=== PATIENT | female | born 1950 | race Caucasian/White ===

== ENCOUNTER 2019-06-09 01:16 | Day surgery (SDC) | payer MEDICARE, SELFPAY ==
[2019-05-19 13:29] VITALS: BMI 20.1
[2019-06-09] MEDS: LACTATED RINGERS 1,000 ML 150 ML IV CONT (08:38)
[2019-06-09 08:46] VITALS: BP 131/58; PULSE 67; RESP 20; TEMP 36.8; O2SAT 100; BMI 19.9
--- NOTE | 2019-06-09 09:11 | P.CONGI_ITS ---
Assessment and Plan Additional Plan This is a 68-year-old white female patient seen in evaluation at the request Dr. Posadas. Patient has a history of dysphagia. She continues to have some problem with large pills. She notes substernal burning and discomfort. She underwent an endoscopy in January of 2019. At that time severe esophagitis and stricture ring was noted. Patient was advised to start omeprazole. She has been noncompliant and has not yet begun this medication. Instead she takes [id number] supplements. Past medical history is significant for anxiety, nephrolithiasis, fibromyalgia, depression, GE reflux disease, irritable bowel syndrome, hyperlipidemia, rheumatoid arthritis. Spinal stenosis. She has an allergy to sulfa medications. Home medications include clonazepam. Nitrofurantoin. Various supplements. Physical exam reveals her to be alert. Oriented x3. Very thin in appearance. HEENT exam unremarkable. She is anicteric. Lungs are clear to auscultation and percussion. Heart is without murmur or extra sounds. Abdominal exam bowel sounds are present soft nontender with no organomegaly. Digital external rectal exam normal. Impression 1. Noncompliance with medications. 2. Dysphagia. 3. GE reflux disease. 4. Esophageal stricture ring. Plan is to proceed with follow-up EGD. Hopefully for biopsy and dilatation of esophageal stricturing. Would encourage anti-reflux measures and proton pump inhibitor be implemented if at all possible. GI Consult Note Consult date/time: 06/09/19 09:11 HPI: Jenniffer Clark is a 68 year old female [facility] Social History Social History Smoking status: Never smoker Alcohol intake: never Meds Home Medications and Allergies Home Medications Medication Instructions Recorded Confirmed Type clonazepam 0.5 mg PO DAILY 04/30/19 06/09/19 History pilocarpine HCl 5 mg PO DAILY 04/30/19 06/09/19 History quetiapine 25 mg PO DAILY 04/30/19 06/09/19 History nitrofurantoin 100 mg PO Q12H 7 Days #28 cap 05/01/19 05/19/19 Rx monohydrate/macrocrystals 100 mg capsule Gastrex 1 tab-cap PO TID 05/19/19 05/19/19 History tacrolimus 0.1 % topical ointment 1 applic TOPICAL BID #60 gm 02/05/20 Rx Allergies Allergy/AdvReac Type Severity Reaction Status Date / Time diazepam AdvReac Intermediate Hyperactive Verified 06/09/19 08:55 Sulfa (Sulfonamide AdvReac Unknown Nausea Verified 06/09/19 08:55 Antibiotics) PROPOXYPHENE NAPSYLATE Allergy Intermediate Hyperactive Uncoded 06/09/19 08:55 Vital Signs Vital Signs - 24 hr 06/09/19 08:46 Temperature 36.8 C Pulse Rate 67 Respiratory Rate 20 Blood Pressure 131/58 L Pulse Oximetry 100
--- NOTE | 2019-06-09 09:26 | WPDANESEPPF ---
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 Patient Data Age: 68 Gender: F Height: 5 ft 2 in Weight: 49.4 kg Last Vital Signs Temp 98.2 F 06/09/19 08:46 Pulse 67 06/09/19 08:46 Resp 20 06/09/19 08:46 BP 131/58 L 06/09/19 08:46 Pulse Ox 100 06/09/19 08:46 Allergies Allergy/AdvReac Type Severity Reaction Status Date / Time diazepam AdvReac Intermediate Hyperactive Verified 06/09/19 08:55 Sulfa (Sulfonamide AdvReac Unknown Nausea Verified 06/09/19 08:55 Antibiotics) PROPOXYPHENE NAPSYLATE Allergy Intermediate Hyperactive Uncoded 06/09/19 08:55 Home Medications Medication Instructions Recorded Confirmed Type clonazepam 0.5 mg PO DAILY 04/30/19 06/09/19 History pilocarpine HCl 5 mg PO DAILY 04/30/19 06/09/19 History quetiapine 25 mg PO DAILY 04/30/19 06/09/19 History nitrofurantoin 100 mg PO Q12H 7 Days #28 cap 05/01/19 05/19/19 Rx monohydrate/macrocrystals 100 mg capsule Gastrex 1 tab-cap PO TID 05/19/19 05/19/19 History tacrolimus 0.1 % topical ointment 1 applic TOPICAL BID #60 gm 06/07/19 Rx Patient hx anesthesia problems: none Family hx anesthesia problems: none [facility] Social History Social History Smoking status: Never smoker Alcohol intake: never Anes - Eval Final PreProcedure Day of Procedure 06/09/19 09:26 Patient weight: normal Heart: regular rate and rhythm Lungs: clear to auscultation Airway: Mallampati scale class II Neurological: alert and oriented Last oral intake: >/= 8 hours ASA classification: II Emergent: no Anesthetic plan: proceed Anesthesia type and monitoring: general GIVS and standard monitoring Informed Consent: The patient's anesthetic plan and its attendant risks and benefits were discussed with the patient/family/POA. Questions were solicited and answers provided to the satisfaction of the patient/family/POA.
[2019-06-09 11:24] VITALS: BP 152/53; PULSE 65; RESP 18; O2SAT 100
[2019-06-09 11:34] VITALS: BP 139/67; PULSE 66; RESP 20; O2SAT 100
[2019-06-09 11:44] VITALS: BP 133/59; PULSE 61; RESP 19; O2SAT 100
== END 2019-06-09 11:53 | disposition home or self-care (01) ==
PROVIDERS: PCP Family Medicine; Visit Provider Internal Medicine Gastroenterology
PROC: 0DJ08ZZ Inspection of Upper Intestinal Tract, Via Natural or Artificial Opening Endoscopic (ICD-10-PCS; CPT 43235; principal; 2019-06-09 09:30)
DX: Q39.4 Esophageal web (principal); K21.9 Gastro-esophageal reflux disease without esophagitis; E78.5 Hyperlipidemia, unspecified; M06.9 Rheumatoid arthritis, unspecified; M79.7 Fibromyalgia; F41.8 Other specified anxiety disorders
CPT/HCPCS: 43235; 43450; J2704; J7120

== ENCOUNTER 2022-03-18 13:35 | Outpatient (CLI) | payer MEDICARE, SELFPAY ==
--- NOTE | ~2022-03-18 | MR_ITS ---
EXAMINATION: MR pelvis wo/w con DATE: 03/18/2022 14:53 INDICATION: Bartholin's gland cyst. Lichen sclerosus. TECHNIQUE: Magnetic resonance imaging (MRI) of the pelvis was performed without and with 9 mL MultiHa nce intravenous contrast. COMPARISON: CT abdomen and pelvis 04/07/2011 FINDINGS: The uterus is normal in morphology. The endometrial complex measures 4 mm in thickness, which is norm al. The adnexa are normal. There is physiologic fluid in the pelvis. There is a 2.5 cm subcutaneous l ipoma in the left perineum. There is no abnormal cyst. There is a right inguinal hernia containing fa t. IMPRESSION: 1. 2.5 cm subcutaneous lipoma in the left perineum. Reviewed, dictated and finalized at location A. 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
== END 2022-03-18 13:36 | disposition home or self-care (01) ==
PROVIDERS: PCP Family Medicine; Visit Provider Obstetrics & Gynecology Gynecology
DX: N75.0 Cyst of Bartholin's gland (principal); L90.0 Lichen sclerosus et atrophicus
CPT/HCPCS: 72197; A9577

== ENCOUNTER → 2023-01-26 15:43 | Outpatient (CLI) | payer MEDICARE, SELFPAY ==
--- NOTE | ~2023-01-26 | CT_ITS ---
EXAMINATION: CT abdomen pelvis wo con DATE: 01/26/2023 15:59 INDICATION: Left flank pain. History of kidney stones. TECHNIQUE: Computed tomography (CT) of the abdomen and pelvis was performed without intravenous contr ast. The dose-length product was 194.71 mGy-cm. Automated exposure control and iterative reconstructi on technique were employed. COMPARISON: CT dated 04/07/2011. FINDINGS: Bilateral lower lobe atelectasis. Heart size normal. No significant pleural or pericardial effusion. There is a fat-containing right inguinal hernia. Nonobstructive bowel gas pattern. Moderate colonic fecal loading. There is nodular liver surface, suspicious for cirrhosis. The spleen, pancrea s, adrenal glands and kidneys are unremarkable. No renal stones. No significant hydronephrosis. Gallb ladder is present. There are pelvic phleboliths. There is atherosclerosis of the aorta without aneury sm. No lymphadenopathy. No free air or free fluid. No acute osseous abnormality. There is lower lumba r facet hypertrophy. IMPRESSION: 1. No acute abdominal abnormality. Reviewed, dictated and finalized at location L.
== END ==
PROVIDERS: PCP Family Medicine; Visit Provider Family Medicine
DX: R31.9 Hematuria, unspecified (principal); R10.9 Unspecified abdominal pain
CPT/HCPCS: 74176

== ENCOUNTER → 2023-02-12 08:48 | Outpatient (CLI) | payer MEDICARE, SELFPAY ==
--- NOTE | ~2023-02-12 | US_ITS ---
EXAMINATION: US abdomen complete DATE: 02/12/2023 09:14 INDICATION: Unspecified cirrhosis of the liver TECHNIQUE: Multiple grayscale and Doppler ultrasound images of the abdomen were obtained. COMPARISON: CT, 01/26/2023 FINDINGS: The head and body of the pancreas are normal. The pancreatic tail is obscured by bowel gas. There is nodularity of the liver surface, consistent with cirrhosis. No focal liver mass is identifi ed. Normal hepatopetal flow in the main portal vein. The gallbladder is normal with no abnormal wall thickening, pericholecystic fluid or stones. The normal common bile duct measures 3 mm. There was no sonographic Ordonez sign. The visualized portions of the aorta and inferior vena cava are normal. The spleen is normal in appearance and measures 9.1 cm. The right kidney measures 11.2 x 3.8 x 3.4 cm . The left kidney measures 9.0 x 3.4 x 4.5 cm. The kidneys demonstrate normal parenchymal echogenicit y. There is no hydronephrosis. An extrarenal pelvis is noted on the right as seen on the comparison C T. IMPRESSION: 1. Cirrhosis of the liver. Reviewed, dictated and finalized at location B. IMPRESSION: 1. Cirrhosis of the liver.
== END ==
PROVIDERS: PCP Family Medicine; Visit Provider Family Medicine
DX: K74.60 Unspecified cirrhosis of liver (principal)
CPT/HCPCS: 76700

== ENCOUNTER 2024-03-28 12:27 | Outpatient (CLI) | payer MEDICARE, SELFPAY ==
--- NOTE | ~2024-03-28 | XR_ITS ---
EXAMINATION: XR chest 2V DATE: 03/28/2024 12:39 INDICATION: Cough, unspecified. TECHNIQUE: Frontal and lateral views of the chest were obtained. COMPARISON: Chest 2 views 03/30/2011, CT abdomen and pelvis 02/25/2023 FINDINGS: There is mild scarring at the lung apices. No pleural effusion or pneumothorax. The heart s ize is normal. IMPRESSION: 1. Mild scarring at the lung apices. Reviewed, dictated and finalized at location A. 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
== END 2024-03-28 12:28 | disposition home or self-care (01) ==
LOC: GOSHIMG 12:28
PROVIDERS: PCP Family Medicine; Visit Provider Nurse Practitioner Family
DX: R05.9 Cough, unspecified (principal); R91.8 Other nonspecific abnormal finding of lung field
CPT/HCPCS: 71046

== ENCOUNTER 2025-03-27 13:49 | Outpatient (CLI) | payer MEDICARE, SELFPAY ==
--- NOTE | ~2025-03-27 | MM_ITS ---
EXAMINATION: MM screening richelle BI w christopher HISTORY: Screening TECHNIQUE: Craniocaudal and mediolateral oblique 3-D tomosynthesis images were obtained and synthetic 2-D images were generated. CAD analysis was submitted and interpreted. COMPARISON: Comparison to multiple prior studies sequentially, with oldest reviewed study dated 10/14/2015. BREAST PARENCHYMAL COMPOSITION: Not dense: There are scattered areas of fibroglandular density. FINDINGS: The left breast is stable without evidence for malignancy. There is an obscured mass in the upper outer quadrant of the right breast, anterior third. IMPRESSION: 1. Obscured right breast mass upper outer quadrant, anterior third. 2. Additional mammographic views and possible breast ultrasound are recommended. BI-RADS Category 0: Incomplete: Needs additional imaging evaluation. Reviewed, dictated and finalized at location O. GAGE LOAN INTERVIEWER IMPRESSION: 1. Obscured right breast mass upper outer quadrant, anterior third. 2. Additional mammographic views and possible breast ultrasound are recommended . BI-RADS Category 0: Incomplete: Needs additional imaging evaluation.
--- NOTE | ~2025-03-27 | DEXA_ITS ---
Bone Density Report Name: MASON SANZ Age: 74 Sex: Female Ethnicity: White Date of : 1950 Indication: postmenopausal; screening for osteoporosis; parental hip fracture; height loss; Referring Provider: PINA CARRILLO Study: Bone densitometry was performed. Exam Date: March 27, 2025 Accession number: [id number] Bone Density: Region BMD T-score Z-score Classification AP Spine(L1-L4) 1.072 0.2 2.7 Normal Femoral Neck (Left) 0.744 -0.9 1.2 Normal Total Hip (Left) 0.950 0.1 1.9 Normal Femoral Neck (Right) 0.772 -0.7 1.4 Normal Total Hip (Right) 0.958 0.1 1.9 Normal Total Hip Mean 0.954 0.1 1.9 Normal World Health Organization criteria for BMD impression classify patients as: Normal (T-score at or above -1.0), Osteopenia (T-score between -1.0 and -2.5), or Osteoporosis (T-score at or below -2.5). 10-year Fracture Risk: FRAX not reported because: All T-scores for Spine Total, Hip Total, Femoral Neck at or above -1.0 Previous Exams: Region Exam Age BMD T-score BMD Change BMD Change Date g/cm2 vs Baseline vs Previous Total Hip(Left) 03/27/2025 74 0.950 0.1 -0.004 (-0.4%) -0.004 (-0.4%) 08/30/2018 67 0.953 0.1 Total Hip(Right) 03/27/2025 74 0.958 0.1 -0.010 (-1.0%) -0.010 (-1.0%) 08/30/2018 67 0.968 0.2 *Denotes significance at 95% confidence level, LSC for Total Hip = 0.027 g/cm2 Clinical Information Provided by Patient: Parent has had a hip fracture Patient maximum height was 64 No regular weight bearing exercise Onset of menses at age 12 Number of children 1 Impression: The patient has normal bone mass. The patient has risk factors, including: parental hip fracture. No significant bone loss was observed. Discussion: BONE DENSITY IS ABOVE THE MINIMUM DESIRABLE LEVEL AT ALL SKELETAL SITES TESTED. This patient?s bone mineral density is above the minimum desirable level (T-score -1.0 or better) at all sites measured. The patient should follow a healthful lifestyle (good nutrition with adequate calcium and vitamin D, and appropriate weight-bearing exercise). Follow-Up: Consider repeating this study in 5 years or sooner if there is some new clinical indication. Reported by: JEFFERY on 03/27/2025 2:56:00 PM. Reviewed, dictated and finalized at location A.
--- OUTSIDE RECORDS SUMMARY | 2025-03-27 15:46 | XMS_ITS | Clinical Summary ---
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 Gender Identity Not on file Sexual Orientation Not on file Plan of Treatment Health Maintenance Due Date Last Done Comments Colorectal Cancer Screening Colonoscopy (10 Years) 1950 Hepatitis C 10/09/1967 DTaP, Tdap and Td Vaccines ( 1 - Tdap) 1968 Pneumococcal Vaccine: 50+ Ye ars (1 of 1 - PCV) 10/09/1999 Zoster Vaccines (1 of 2) 10/09/1999 Annual Medicare Wellness Visit 2014 Dexa Scan (General) 2014 RSV Immunization or 60+ Years (1 - 1-dose 75+ series) 2024 COVID-19 Vaccine ( - 2024-2 6 season) 2025 Influenza Adult (#1) 2025 Hepatitis A Vaccines Aged Out No long er eligible based on patient's age to complete this topic Meningococcal B Vaccine Aged Out No l onger eligible based on patient's age to complete this topic Meningococcal Vaccine Aged Out No jose amol eligible based on patient's age to complete this topic RSV Immunizations Under 20 Months Aged Out No longer eligible based on patient's age to complete this topic Insurance [employer] MEDICARE Care Teams Black Top Spreader Machine Operator Relationship Specialty Start Date End Date Kd Posadas MD PCP - General FAMILY PRACTICE 07/03/21
--- OUTSIDE RECORDS SUMMARY | 2025-03-27 15:46 | XMS_ITS | Patient Health Record ---
Author Organization [facility] [employer] Address [address] [place] [address] Care Team Providers Care Software Sales Consultant Name Role Phone Kd Posadas MD Primary Care Provider Unava ilable Jolene Magdaleno Unavailable [phone] Mirtha Nix Unavailable [phone] Allergies Allergen (clinical drug ingredient) Drug/Non Drug Allergy documented on EMR Reaction Allergy Type Onset Date Status Substance with sulfonamide structure and antibacterial mechanism of action (substance) SULFA (SULFONAMIDE ANTIBIOTICS) (uncoded) Unknown Allergy 08/05/2023 Active Reason For Referral No Information Medications Medication SIG (Take, Route, Frequency, Duration) Notes Start Date End Date Status Tacrolimus 0.1 % Ointment External 08/05/2023 Active QUEtiapine Fumarate 25 MG Tablet 1 tablet Oral four times a day; Duration: 90 days Active Meloxicam 7.5 MG Tablet TAKE 1 TABLET BY MOUTH DAILY Oral; Duration: 90 Days Active Mometasone Furoate 0.1 % Ointment APPLY TO GINGIVA OR VAGINA AREA TWICE DAILY NEEDED LICHEN PLANUS FLARE External; Duration: 20 Days Active Nitrofurantoin Macrocrystal 50 MG Capsule 1 capsule Oral Once a day; Duration: 90 days Active Social History Tobacco Use: Social History Observation Description Date Details (start date - stop date) Never Smoker NA - NA Sex Assigned At : Social History Observation Description Sex Assigned At Female Social History Tobacco Use: Social Info Question Answer Notes Tobacco Control (Standard) Tobacco use: Nonsmoker Additional Details Category Social Info Options Details Migrated Social History Migrated Social History Alcohol Intake: None 02/14/2018,Tobacco Years: Never smoker 02/14/2018 Drug/Alcohol: Do you smoke marijuana? Den ies Do you drink alcohol? No Problems Problem Type SNOMED Code ICD Code Onset Dates Problem Status W/U Status Risk Notes Problem Recurrent major depression in full remission (22505153) Major depressive disorder, recurrent, in full remission (F33.42) Active confirmed Problem Generalized anxiety disorder (19412558) Generalized anxiety disorder (F41.1) Active confirmed Vital Signs Heart Rate 74 /min 03/02/2025 Height-cm 157.48 cm 03/02/2025 Blood pressure diastolic 74 mm Hg 03/02/2025 Weight-kg 59.42 kg 03/02/2025 Height 62.00 in 03/02/2025 Blood pressure systolic 128 mm Hg 03/02/2025 Weight 131 lbs 03/02/2025 BMI 23.96 kg/m2 03/02/2025 Encounters Encounter Location Date Provider Diagnosis [facility] [employer] [address] [address] 06/16/2024 Mirtha Nix Generalized anxiety disorder F41.1 and Major depressive disorder, recurrent, in full remission F33.42 [facility] [employer] [address] [address] 09/08/2024 Mirtha Nix Major depressive disorder, recurrent, in full remission F33.42 ; Negative depression screening Z13.31 ; Generalized anxiety disorder F41.1 ; Benign essential HTN I10 and Intermittent palpitations R00.2 [facility] [employer] [address] [address] 12/08/2024 Mirtha Nix Generalized anxiety disorder F41.1 and Major depressive disorder, recurrent, in full remission F33.42 [facility] [employer] [place] [address] [address] 03/02/2025 Mirtha Nix Generalized anxiety disorder F41.1 and Major depressive disorder, recurrent, in full remission F33.42 [facility] [employer] [address] [address] 04/25/2024 Mirtha Nix Major depressive disorder, recurrent, in full remission F33.42 Assessments Encounter Date Diagnosis (ICD Code) Assessment Notes Treatment Notes Treatment Clinical Notes Section Notes 04/25/2024 Major depressive disorder, recurrent, in full remission (ICD-10 - F33.42) 06/16/2024 Major depressive disorder, recurrent, in full remission (ICD-10 - F33.42) Anxiety - Overall Stable - Experiencing stress due to 's health and financial concerns, managing appropriately Plan: - Continue Quetiapine 25 mg, 4 times a day (total 100 mg per day) - Monitor mood and anxiety levels - Encourage stress management techniques - Follow up in 3 months or sooner if needed Clonazepam taper - Successfully tapering off Clonazepam, currently at 0.02 mg Plan: - Continue tapering clonazepam, concerned of how to continue but weary of stopping abruptly - Consider reducing to 0.1 mg with water dilution or 0.2 mg every third day - Monitor for any withdrawal symptoms and adjust tapering plan accordingly Medication refills and management - Believes she does not need a clonazepam refill to finish taper Plan: - Refill Quetiapine prescription - Patient to contact [facility] for Clonazepam refill if needed Follow-up in 3 months or sooner if needed 06/16/2024 Generalized anxiety disorder (ICD-10 - F41.1) cont clonazepam compounded; down to 0.02 mg daily, and working on slow taper compounded at [facility], does not believe she needs refill at this time (last sent as 0.10/day with refills in January) Anxiety - Overall Stable - Experiencing stress due to 's health and financial concerns, managing appropriately Plan: - Continue Quetiapine 25 mg, 4 times a day (total 100 mg per day) - Monitor mood and anxiety levels - Encourage stress management techniques - Follow up in 3 months or sooner if needed Clonazepam taper - Successfully tapering off Clonazepam, currently at 0.02 mg Plan: - Continue tapering clonazepam, concerned of how to continue but weary of stopping abruptly - Consider reducing to 0.1 mg with water dilution or 0.2 mg every third day - Monitor for any withdrawal symptoms and adjust tapering plan accordingly Medication refills and management - Believes she does not need a clonazepam refill to finish taper Plan: - Refill Quetiapine prescription - Patient to contact [facility] for Clonazepam refill if needed Follow-up in 3 months or sooner if needed 09/08/2024 Major depressive disorder, recurrent, in full remission (ICD-10 - F33.42) 12/08/2024 Major depressive disorder, recurrent, in full remission (ICD-10 - F33.42) 12/08/2024 Generalized anxiety disorder (ICD-10 - F41.1) 03/02/2025 Major depressive disorder, recurrent, in full remission (ICD-10 - F33.42) 03/02/2025 Generalized anxiety disorder (ICD-10 - F41.1) 09/08/2024 Generalized anxiety disorder (ICD-10 - F41.1) 09/08/2024 Negative depression screening (ICD-10 - Z13.31) 09/08/2024 Benign essential HTN (ICD-10 - I10) 09/08/2024 Intermittent palpitations (ICD-10 - R00.2) 09/08/2024 Jsesica Clark, a female patient with a history of rheumatic fever, presents with stress-related heart palpitations and tachycardia, particularly exacerbated by her 's snf placement and Medicaid application process. Stress-induced tachycardia and palpitationsAssess ment: Patient reports experiencing heart palpitations and tachycardia, particularly during periods of stress. Symptoms include a fast heart rate that doesn't slow down as quickly as expected after exertion, lasting up to 5-10 minutes. She also experiences occasional skipped beats, a symptom she has had since her twenties. The patient notes that these symptoms worsen with stress, certain medications (e.g., loratadine), and excessive caffeine intake. Recently, she experienced an unusual episode of continuous palpitations lasting for hours. The patient has a history of rheumatic fever as a child but reports no current cardiac murmur. Given the correlation with stress and lack of other cardiac symptoms, these episodes are likely stress-induced and potentially exacerbated by her current quetiapine regimen.Plan:- Continue current quetiapine regimen: 25 mg PO QID (8 AM, 1 PM, 6 PM, 11 PM)- Maintain phone alarms to ensure adherence to medication schedule- Monitor for correlation between missed or early doses and heart symptoms- Advise patient to avoid known triggers (e.g., excessive caffeine, loratadine)- Encourage stress reduction techniques- Patient to report any worsening or prolonged cardiac symptoms AnxietyAssessment: Patient reports feeling overwhelmed due to current life stressors, primarily her 's snf placement and the Medicaid application process. She experiences physical manifestations of anxiety, such as back tension, but denies significant mental distress or functional impairment. Sleep and appetite remain unaffected. The patient is currently using clonazepam 1 mg twice weekly for anxiety management.Plan:- Continue clonazepam 1 mg PO twice weekly (Sundays and Wednesdays) as needed for anxiety- Refill clonazepam prescription for a 3-month supply- Encourage continued use of stress reduction techniques- Monitor for changes in anxiety symptoms or need for medication adjustment 12/08/2024 Jessica Clark, a 74-year-old female, presents for follow-up of anxiety management, having recently discontinued clonazepam and reporting occasional mild anxiety symptoms. Anxiety Disorder Assessment: Patient reports successful discontinuation of clonazepam 3-4 weeks ago. She notes occasional mild anxiety symptoms, including tightness across shoulder blades. Overall, anxiety appears to be improving with current management. Patient is implementing positive adjustments in thinking processes to manage anxiety. No significant mood disturbances reported, though patient mentions occasional mild depressive symptoms related to aging concerns. Plan: - Continue quetiapine 25 mg PO QID - Monitor for side effects: tiredness, grogginess, weight gain, dizziness, balance issues - Advised to report any increase in palpitations or side effects - Discussed risk of QTc prolongation with quetiapine - Instructed to rise slowly from chairs to prevent dizziness - Follow-up appointment in 3 months Cardiac Symptoms Assessment: Patient reports infrequent heart palpitations, a longstanding symptom since her twenties, typically associated with stress. Recent echocardiogram showed no significant findings. Patient suspects possible caffeine sensitivity. A heart murmur was detected during a recent annual appointment but was not mentioned in the echocardiogram report. Plan: - Continue to monitor palpitations - Advised to report any increase in frequency or severity of palpitations Balance Issues Assessment: Patient reports variable balance, with some days feeling secure and steady, while other days experiencing difficulty, particularly when carrying heavy items. Patient attributes this partly to foot problems. Plan: - Monitor balance issues - Rise slowly from chairs to prevent dizziness Medical Decision Making Mason Clark is a 74-year-old female with a history of anxiety, presenting for follow-up after discontinuing clonazepam 3-4 weeks ago. The patient reports occasional tightness across her shoulder blades, a known anxiety indicator for her, which appears to be improving. She also mentions infrequent heart palpitations, which she has experienced since her twenties, typically during times of stress. Recent echocardiogram showed no significant findings, despite a heart murmur detected by her primary care physician in October. The decision to maintain current quetiapine dosage (25mg four times daily) is based on the patient's stable mood and anxiety symptoms. However, potential side effects of quetiapine, including its impact on heart conduction, are being monitored closely. The clinician considered the patient's reported balance issues and weight gain in relation to the medication but determined no immediate changes were necessary. The differential diagnosis includes age-related changes, medication side effects, and underlying cardiac conditions, though the latter is less likely given the normal echocardiogram results. 03/02/2025 Jessica Clark is a female patient presenting with recurrent anxiety and back pain that began in mid-December, followed by anxiety symptoms approximately one month later. Depression Patient reports mild depressive symptoms and acknowledges that lack of light in wintertime has an effect on her mood. She is using light therapy as previously recommended. Plan: - Continue quetiapine 25 mg 4 times daily - Patient picked up new 90-day supply - Continue light therapy lamp for 15 minutes every morning - Follow-up in 3 months, sooner if concerns arise Anxiety symptoms Patient reports onset of anxiety symptoms approximately one month after back pain began in mid-December. Symptoms primarily manifest as body tension and body anxiety, with occasional nervousness. Patient notes this is her third episode, with previous episodes being extremely severe and very significant. She reports 2-3 difficult days last week, though anxiety symptoms appear to be improving this week compared to last week. Patient believes symptoms may be connected to food sensitivities, particularly wheat, rice, sugar, and dairy, which she consumed more of over the summer. She has been working with a counselor and reports her is staying stable. Plan: - Continue quetiapine 25 mg 4 times daily - Patient has call into dietitian/nutritirani philip for dietary consultation - Continue dietary modifications (gluten-free, grain-free since , now dairy-free) Back pain Patient reports consistent back pain that started in mid-December after being pain-free for 2-3 years. She believes the pain may be related to food sensitivities, particularly wheat, which she has noticed causes back pain in the past. Patient has made dietary modifications including dropping gluten and being off grains since mid-January, and decided to drop dairy as of today. Plan: - Patient has call into dietitian/kathy flores for dietary consultation - Continue dietary modifications (gluten-free, grain-free since , now dairy-free) Medical Decision Making Mason Clark is a female with a psychiatric history presenting with recurrent anxiety symptoms and back pain that began in mid-December, followed by anxiety symptoms approximately one month later. The patient reports this is her third episode of similar symptoms, with previous episodes being more severe. She has identified a potential correlation between her symptoms and dietary triggers, specifically noting that wheat, rice, sugar, and dairy may exacerbate her back pain and anxiety. The patient has been managing symptoms through dietary modifications, having eliminated gluten since and planning to eliminate dairy. She reports the anxiety symptoms have improved somewhat this week compared to last week, though back pain remains consistent. The patient is currently stable on quetiapine with only minor coordination and balance concerns as side effects, along with occasional heart palpitations that correlate with increased anxiety days. She is utilizing multiple supportive interventions including counseling, light therapy for seasonal effects, and pulse electromagnetic field therapy. Plan Of Treatment Pending Test Test Name Order Date UDT 06/16/2024 Next Appt Details Provider Name:Jolene Magdaleno, 06/01/2025 01:45:00 PM, [address], [facility] [address], [place], [address], Insurance Providers Payer Name Payer Address Payer Phone Subscriber Number Group Number Insured Name Patient Relationship to Insured Coverage Start Date Coverage End Date [employer] [address] [place] [phone] [id number] MASON CLARK Self - patient is the insured Medical (General) History Medical History History ICD Code Problems: Generalized anxiety disorder lichen sclerosus Ophthalmic migraine Major Depressive Disorder
--- OUTSIDE RECORDS SUMMARY | 2025-03-27 15:46 | XMS_ITS | Clinical Summary ---
Author Organization [facility] Address [address] [facility] [address] [facility] [address] Care Team Providers Care Ear Flap Binder Name Role Phone Kd Posadas MD Primary Care Provider [phone] Allergies Active Allergy Reactions Criticality Noted Date Comments Metronidazole Rash Medium 11/27/2014 Pollen Extracts Other (See comments) Reaction: OTHER REACTION, Sulfa (Sulfonamide Antibiotics) Nausea only Low 11/27/2014 Medications tacrolimus (PROTOPIC) 0.1 % ointment apply to affected areas on vulvar areas daily 04/10/2022 Active QUEtiapine (SEROquel) 25 mg tablet Take 1 tablet (25 mg total) by mouth 4 (four) times a day 04/18/2023 Active nitrofurantoin (MACRODANTIN) 50 mg capsule Take 1 capsule (50 mg total) by mouth daily 03/22/2023 Active mometasone (ELOCON) 0.1 % ointment Apply to vagina BID x 1 month, then M,W,F afterward. 04/10/2022 Active loratadine 10 mg capsule Take by mouth Activ e clonazePAM, bulk, 100 % powder 2 04/27/2023 Active azelaic acid 15 % gel Apply to cheeks daily. 30 days supply. 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 Dermatitis 07/02/2014 Melanocytic nevus 07/02/2014 Rash and other nonspecific skin eruption 015 Seborrheic keratosis 07/02/2014 Social History Tobacco Use Types Packs/Day Years Used Date Smoking Tobacco: Never Smokeless Tobacco: Never Tobacco Cessation:Counseling Given: Not Answered Personal Safety Answer Date Recorded Getting School Help Needed Not on file 06/02 Comments Unknown Sex and Gender Information Value Date Recorded Sex Assigned at Not on file Legal Sex Female 11:10 AM [employer] Gender Identity Not on file Sexual Orientation Not on file Last Filed Vital Signs Vital Sign Reading Time Taken Comments Blood Pressure - - Pulse - - Temperature - - Respiratory Rate - - Oxygen Saturation - - Inhaled Oxygen Concentration - - Weight 52.2 kg (115 lb) 06/02/2023 2:20 PM [employer] Height 157.5 cm (5' 2) 06/02/2023 2:20 PM [employer] Body Mass Index 21.03 06/02/2023 2:20 PM [employer] Plan of Treatment Health Maintenance Due Date Last Done Comments Colon Cancer Screening-Colonoscopy 1950 Depression Screening 1950 Fall Risk Assessment 1950 Hepatitis C Screening 1950 Osteoporosis Screening-Bone Density Scan 1950 DTaP/Tdap/Td Vaccine (1 - Tdap) 1960 Hepatitis B Screening 10/09/1967 Pneumococcal vaccine 65+ (1 of 1 - PCV) 10/09/1999 Zoster Vaccine (1 of 2) 10/09/1999 Well Visit 65+ 2014 Influenza Vaccine (#1) 2025 Insurance A[employer] MEDICARE A[employer]NA MEDICARE Care Teams Ear Flap Binder Relationship Specialty Start Date End Date Kd Posadas MD [address] [place] [address] [address] PCP - General Family Medicine 06/02/23
--- OUTSIDE RECORDS SUMMARY | 2025-03-27 15:46 | XMS_ITS | Clinical Summary ---
Author Organization [facility] Address [address] [place] [address] Care Team Providers Care Life Consultant Name Role Phone Kd Posadas MD Primary Care Provider [phone] Source Comments [facility],non-owned Affiliates and Associated Physician Practices is amultiple site organization consisting of ambulatory clinics and hospital sitesin [place], [place], [place] and [place]. This disclosure is being madepursuant to the Care Everywhere program and may not contain all information available regarding this patient. Last updated 18.[facility] Allergies Active Allergy Reactions Criticality Noted Date Comments Metronidazole Rash Medium 11/27/2014 Propoxyphene N-Apap Anxiety Low 11/27/2014 Sulfa Drugs Nausea Low 11/27/2014 Medications * Be aware that medications may not be up to date on this document. Alwaysverify current medications with the patient. QUEtiapine (SEROQUEL) 25 MG tablet Take 1 (one) tablet by mouth four times daily on empty stomach 1 6 Active clonazePAM (KLONOPIN) 0.5 MG tablet Take 0.5 (one-half) tablet by mouth at bedtime 0 Active pilocarpine hcl, oral, (SALAGEN) 5 MG tablet Take 5 mg by mouth once daily 0 Active Loratadine 10 MG Act deja Loperamide-Simet hicone (IMODIUM ADVANCED PO) Active PREMARIN 0.625 MG/GM vaginal cream Apply 1 g to affected area at bedtime 1 Active nitrofurantoin macrocrystal (Macrodantin) 50 MG capsule Take 1 (one) capsule by mouth once daily Active meloxicam (Mobic) 7.5 MG tablet Take 1 (one) tablet by mouth once daily 4 Active tacrolimus (Protopic) 0.1 % ointmentIndicati ons:Lichen sclerosus,Lichen planus apply to affected areas on vulvar areas 4-5 times a week. 30 DS 60 g 1 5 Active azelaic acid (Finacea) 15 % gelIndications:O ther rosacea Apply to face daily. 30 days supply. 50 g 2 5 Active mometasone (Elocon) 0.1 % ointmentIndicati ons:Lichen sclerosus,Lichen planus Apply to gingiva or vagina area twice daily as needed for lichen planus flare.30 DS 45 g 5 Active azelaic acid (Finacea) 15 % gelIndications:O ther rosacea Apply to face daily. 30 days supply. 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 Cirrhosis of liver 03/22/2025 Overview (03/22/2025): Negative [facility]ATSON in 2024 Fibromyalgia syndrome 03/22/2025 Lichen sclerosus 08/01/2021 Lichen planus 08/01/2021 Bartholin's gland cyst 08/01/2021 Encounter for long-term current use of high risk medication 08/01/2021 Rash and other nonspecific skin eruption 020 Skin irritation 12/08/2019 Israel angioma 12/08/2019 Asteatotic eczema 10/06/2019 Nevus, non-neoplastic 07/02/2014 Melanocytic nevus 07/02/2014 Dermatitis 07/02/2014 Seborrheic keratosis 07/02/2014 Encounters Date Type Department Care Team Description 03/22/2025 2:30 PM COLORIST DYER Office Visit [facility] - General Dermatology [address] [place] [address] Afsaneh Parker MD Lipoma of groin (Primary Dx); Other rosacea; Lichen sclerosus; Lichen planus; Atrophic vaginitis; Other seborrheic keratosis 03/22/2025 Travel 01/05/2025 Telephone [facility] - Cosmetic Dermatology [address], [address] [place] [address] Afsaneh Parker MD Appointment from Last 3 Months Family History Medical History Relation Name Comments None Known Brother CAD (Coronary Artery Disease) Father Hyperlipidemia Father Hypertension Father Other Father occulopharyngea l dystrophy None Known Maternal Aunt None Known Maternal Grandfather None Known Maternal Grandmother None Known Maternal Uncle Leukemia Mother Osteoporosis Mother None Known Other None Known Paternal Aunt None Known Paternal Grandfather None Known Paternal Grandmother None Known Paternal Uncle None Known Sister Allergy (Severe) Neg Hx Asthma Neg Hx CVA Neg Hx Cancer - Breast Neg Hx Cancer - Other Neg Hx Cancer - Skin, Melanoma Neg Hx Cancer - Skin, Non Melanoma Neg Hx Eczema Neg Hx Hemophilia Neg Hx Other - Hepatic/Liver Neg Hx Psoriasis Neg Hx Rashes/Skin Problems Neg Hx Relation Name Status Comments Brother Father Maternal Aunt Maternal Grandfather Maternal Grandmother Maternal Uncle Mother Alive Other Paternal Aunt Paternal Grandfather Paternal Grandmother Paternal Uncle Sister Social History Tobacco Use Types Packs/Day Years Used Date Smoking Tobacco: Never Smokeless Tobacco: Never Tobacco Cessation:Counseling Given: Not Answered Alcohol Use Standard Drinks/Week Comments No 0 (1 standard drink = 0.6 oz pur e alcohol) Comments No Sex and Gender Information Value Date Recorded Sex Assigned at Not on file Legal Sex Female 5:31 PM COLORIST DYER Gender Identity Not on file Sexual Orientation Not on file Last Filed Vital Signs Vital Sign Reading Time Taken Comments Blood Pressure 136/80 02/23/2022 2:45 PM CDT Pulse 64 06/06/2024 1:57 PM COLORIST DYER Temperature 36.2 C (97.1 F) 06/06/2024 1:57 PM COLORIST DYER Respiratory Rate - - Oxygen Saturation 98% 06/06/2024 1:57 PM COLORIST DYER Inhaled Oxygen Concentration - - Weight 57.6 kg (127 lb) 06/06/2024 1:57 PM COLORIST DYER Height 157.5 cm (5' 2) 06/06/2024 1:57 PM COLORIST DYER Body Mass Index 23.23 06/06/2024 1:57 PM COLORIST DYER Plan of Treatment Upcoming Encounters Date Type Department Care Team (Late st Contact Info) Description 09/28/2025 11:10 AM CDT Office Visit [facility] - General Dermatology [address], [address] [place] [phone] Afsaneh Parker MD [address] [facility] [address] [place] [address] Health Maintenance Due Date Last Done Comments BONE DENSITY TESTING 1950 COLOGUARD (AGES 45-75) - COL ON CA SCREENING 1950 COLON MONITORING 1950 COLONOSCOPY - COLON CA SCREENING 1950 CT COLONOGRAPHY - COLON CA SCREENING 1950 Colorectal Cancer Screening 1950 FIT - COLON CA SCREENING 1950 FLEX SIG - COLON CA SCREENING 1950 LIPID TESTING 1950 MAMMOGRAM 1950 HEPATITIS C SCREENING 10/04/1967 DTAP/TDAP/TD VACCINES (1 - Tdap) 1968 PNEUMOCOCCAL VACCINE 50+ (1 of 1 - PCV) 10/09/1999 ZOSTER VACCINE (1 of 2) 10/09/1999 DEPRESSION SCREENING 05/03/2024 MEDICARE AWV CALENDAR YEAR 2024 Respiratory Syncytial Virus (RSV) Vaccine Pt: or over 60 yrs (1 - 1-dose 75+ series) 2024 COVID-19 VACCINE ( - 2024-2 6 season) 2025 INFLUENZA VACCINE (#1) 2025 HEPATITIS B VACCINE Aged Out No longe r eligible based on patient's age to complete this topic HIB VACCINE Aged Out No longer eligi ble based on patient's age to complete this topic HPV VACCINE Aged Out No longer eligi ble based on patient's age to complete this topic MENINGOCOCCAL (Group B) VACC INE SHARED DECISION-MAKING Aged Out No longer eligibl e based on patient's age to complete this topic MENINGOCOCCAL GROUPS A/C/Y/W VACCINE Aged Out No longer eligible b ased on patient's age to complete this topic Goals Goal Patient Goal Type Associated Problems Recent Progress Patient-Stated? Author Medication Management General On track( 025 1:59 PM COLORIST DYER) No Concepcion Tejeda RN Note: Expected end date: ongoing Interventions: Take all medications as prescribed Let your doctor know right away about any changes in your medications Make sure to request a refill of your medication at least one week prior to your last dose Insurance [employer] MEDICARE ADV Care Teams Life Consultant Relationship Specialty Start Date End Date Kd Posadas MD [address] [place] [phone] [facility] - General 09/16/09
== END 2025-03-27 13:50 | disposition home or self-care (01) ==
PROVIDERS: PCP Family Medicine; Visit Provider Family Medicine
DX: Z12.31 Encounter for screening mammogram for malignant neoplasm of breast (principal); Z78.0 Asymptomatic menopausal state; R92.8 Other abnormal and inconclusive findings on diagnostic imaging of breast
CPT/HCPCS: 77063; 77067; 77080